=== PATIENT | male | born 1970 ===

== ENCOUNTER 2016-12-31 15:10 | Emergency (ER) | payer SELFPAY ==
[2016-12-31 15:23] VITALS: BP 160/92; PULSE 101; TEMP 98; O2SAT 98
--- NOTE | 2016-12-31 15:51 | C.PDOC ---
History Of Present Illness 46M c/o left knee pain after he twisted his knee while on a trampoline last night and heard an audible sound from his knee. he has been ambulatory and took 800mg ibuprofen this morning without relief. Time Seen by Provider: 12/31/16 15:46 Chief Complaint (Nursing): Lower Extremity Problem/Injury Past Medical History Vital Signs: Last Vital Signs Temp 98 F 12/31/16 15:20 Pulse 101 H 12/31/16 15:20 Resp 20 12/31/16 15:20 BP 160/92 H 12/31/16 15:20 Pulse Ox 98 12/31/16 15:59 - Medical History PMH: Asthma, Bronchitis - [facility] NEBULIZER THERAPY (05/04/14) Family History: States: Other Other Family History: nc - Social History Hx Tobacco Use: Yes Hx Alcohol Use: Yes (occasionally) Hx Substance Use: No - Immunization History Hx Tetanus Toxoid Vaccination: Yes (8-9 years ago) Hx Influenza Vaccination: No Hx Pneumococcal Vaccination: No Review Of Systems Constitutional: Negative for: Fever Cardiovascular: Negative for: Chest Pain Respiratory: Negative for: Shortness of Breath Gastrointestinal: Negative for: Vomiting Neurological: Negative for: Weakness, Numbness Physical Exam - Physical Exam Appears: Well, Non-toxic, No Acute Distress Skin: Warm, Dry Head: Atraumatic Extremity: Swelling (left knee), Other (patella dislocated superiorly. dim rom left knee. ) Pulses: Left Dorsalis Pedis: Normal, Right Dorsalis Pedis: Normal Neurological/Psych: Oriented x3, Normal Motor, Normal Sensation, Other (no focal deficits) ED Course And Treatment O2 Sat by Pulse Oximetry: 98 Medical Decision Making Medical Decision Making: xr- superior patella dislocation given clinical findings this likely represents w patellar tendon rupture. I disc w ortho Dr Peguero- he will have his office call the pt tomorrow to schedule follow up and surgery I disc this w the pt who v/u knee immobilizer placed Disposition - Disposition Disposition: HOME/ ROUTINE Disposition Time: 16:58 Condition: STABLE Forms: [facility] ([facility]) - Clinical Impression Clinical Impression: Patellar tendon rupture
[2016-12-31 17:12] VITALS: RESP 16
--- NOTE | 2016-12-31 18:30 | RAD ---
PROCEDURE: Left Ankle Radiographs. HISTORY: swelling after twisting leg COMPARISON: None FINDINGS: BONES: No evidence of acute displaced fracture nor dislocation. The osseous structures appear intact. . Tiny plantar surface calcaneal enthesophyte. JOINTS: Normal. No osteoarthritis. Ankle mortise maintained. Talar dome intact SOFT TISSUES: Mild bilateral soft tissue swelling. OTHER FINDINGS: None. IMPRESSION: No evidence of acute displaced fracture nor dislocation. Mild bilateral soft tissue swelling. If symptoms persist or occult fracture suspected clinically recommend repeat radiographs in 5-10 days as most fractures should become radiographically evident in this timeframe.
--- NOTE | 2016-12-31 18:32 | RAD ---
PROCEDURE: Left Knee Radiographs. HISTORY: Pain. COMPARISON: None. FINDINGS: BONES: No evidence of acute displaced fracture. Slightly high-riding patella. JOINTS: Tiny posterior patellar osteophyte formation. JOINT EFFUSION: Suspect small joint effusion. OTHER FINDINGS: There appears to be mild anterior soft tissue swelling. IMPRESSION: No evidence of acute displaced fracture. Slightly high-riding patella. Mild prepatellar soft tissue swelling and suspected small joint effusion. If symptoms persist or occult fracture suspected clinically consider followup additional imaging such as MRI or CT scan. .
== END 2016-12-31 17:11 | disposition home or self-care (01) ==
LOC: C.ER 15:10
DX: S76.112A Strain of left quadriceps muscle, fascia and tendon, initial encounter (principal); X58.XXXA Exposure to other specified factors, initial encounter; Y93.44 Activity, trampolining
CPT/HCPCS: 73560; 73610; 96372; 99283; J1885